=== PATIENT | male | born 1950 | race Caucasian/White ===

== ENCOUNTER → 2017-06-22 | Outpatient (CLI) | payer BC ==
[2017-06-22 12:24] LABS: CALCIUM 9.2 mg/dL (8.5-10.1); CREATININE 1.1 mg/dL (0.7-1.3); POTASSIUM 4.5 mmol/L (3.5-5.1)
== END ==
LOC: CAT 10:37
PROVIDERS: Nurse Practitioner
DX: K57.30 Diverticulosis of large intestine without perforation or abscess without bleeding (principal); N40.2 Nodular prostate without lower urinary tract symptoms

== ENCOUNTER → 2019-07-24 | Outpatient (CLI) | payer BC ==
[~2019-07-24] VITALS: Ht 175.3 cm; Wt 67.1 kg
[~2019-07-24] MED LIST: BENADRYL25 MG PO; NEURONTIN 300300 M1 PO; NEURONTIN600 MG PO; PERCOCET 5-3251 EACH PO; TRAMADOL 50 MG50 MG PO; VALTREX1000 MG PO
--- NOTE | ~2019-07-24 | HPC ---
[facility] [address] [place] [address] PAIN MANAGEMENT CONSULTATION Name: WISAM GUTIERREZ [id number] Admission: 07/24/19 Attend Phys: Olivier Pacheco MD Discharge: Date of : 48 Report #: [id number] THIS REPORT FOR: cc: Jeffry Galindo MD, Neal A. MD Brown,Olivier Salazar MD ~ CC: Olivier Galindo DATE OF SERVICE: 07/24/2019 CHIEF COMPLAINT: Shingles to the face and head. HISTORY: The patient is a 68-year-old gentleman who has been referred to the pain clinic. The patient states that he developed shingles on his face. It involved his right scalp area above his eye. He sought consultation from an eye doctor. He was told that there was no involvement of the cornea in his eye. This was in 05/17/2019. He does drive a city bus. He has been off work for some time because of this shingles problem. He is experiencing some numbness over his right eye. The blisters have dried. He notes that there is a discomfort over his right eyebrow. He has used steroid eyedrops. He did try Vicodin, but did not find that this medication provided significant improvement. He used oxycodone. This medication helped enabling him to get more sleep. He notes that there is still some discomfort. If he sameera on his right side on the pillow, this can awaken him. At this point, the burning is somewhat less. He does note some shooting and lancinating type of pain. ALLERGIES: AMOXICILLIN. CURRENT MEDICATIONS: Valtrex 1000 mg t.i.d., gabapentin 300 mg 1 capsule t.i.d., Tamiflu 75 mg 2 times daily, oxycodone 5/325 one p.o. q.4-6 hours for pain, tramadol 50 mg b.i.d. as needed for moderate pain. PAST MEDICAL HISTORY: Arthritis, joint disease, herpes zoster outbreak over the right eye and right scalp area. PAST SURGICAL HISTORY: 1. Three knee surgeries ____ cartilage on the right and left, approximately in 1998. 2. Cataract, left, approximately in 2015. 3. Left rotator cuff, approximately in 2015. 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 He has not been working at this juncture. He has been off since 05/17/2019. The patient plays in a band. [facility] [address] [place] [address] PAIN MANAGEMENT CONSULTATION Name: WISAM GUTIERREZ Cecily Room #: [facility] [id number] Admission: 07/24/19 Attend Phys: Olivier Pacheco MD Discharge: Date of : 48 Report #: [id number] REVIEW OF SYSTEMS: ____ good health lately. LABORATORY DATA: No new laboratory values are available at the time of our interview. PAIN CLINIC ASSESSMENT AND PQRS: 1. The patient has some osteoarthritic changes associated with his knees. He is not being treated for rheumatoid arthritis. 2. Height: 5 feet 9 inches, weight 148 pounds, BMI to be calculated. Pain intensity 5/10. 3. Fall history: The patient has not fallen in the last 3 months. 4. Blood thinner: The patient is not on a blood thinning medication. 5. Opioids: The patient received medication from one source, the pain clinic. 6. Opioid use: Moderate. 7. Recreational drugs: The patient denies use of recreational drugs. 8. Tobacco: The patient does not smoke. 9. Alcohol: The patient denies use of alcoholic beverages. PHYSICAL EXAMINATION: GENERAL: The patient is a well-developed, well-nourished white male. Appears his stated age. He is alert and oriented x 3. His affect is appropriate. Speech is fluent. HEENT: Normocephalic, atraumatic. Extraocular eye muscles are intact. The patient has a well-healed lesion in the right lateral portion of his temporal area and some evidence of blistering over the right eyelid area. The patient has some pain and discomfort that still remains over the right temporal area. No evidence of eye involvement is noted. He does complain of some pain and discomfort around the eye upper area as well as down in the medial canthal area. NECK: Without adenopathy or JVD. HEART: Regular rate. ABDOMEN: Nontender. LUNGS: Clear to auscultation. EXTREMITIES: Upper extremity muscle strength judged to be 5/5 for the major muscle groups in the upper extremity. Lower extremity muscle strength judged to be 5/5 for the major muscle groups in the lower extremity. IMPRESSION: 1. Postherpetic neuralgia after herpes zoster outbreak over the right eye in 05/2019. 2. Osteoarthritis, knees. RECOMMENDATION: We discussed treatment options with the patient. At this juncture, he feels that his medications are somewhat helpful. He continues to have some pain, which is lancinating and sharp. Sometimes sympathectomy in the right superior ganglion area could be helpful. Overall, the patient seems to be doing reasonably well. I would recommend that he continue with his Percocet to [facility] [address] [place] [address] PAIN MANAGEMENT CONSULTATION Name: WISAM GUTIERREZ Room #: [facility]#: [id number] Admission: 07/24/19 Attend Phys: Olivier Pacheco MD Discharge: Date of : 48 Report #: [id number] help with pain at night. We will also have the patient continue with the Neurontin. He has had 300 mg 4 times daily. At this juncture, I think he could benefit from continued use of gabapentin. We will have the patient take 600 mg 1 p.o. t.i.d. We explained to the patient that sometimes patients do not notice a significant amount of pain relief with dosing less than 1800. Sometimes it is approximately 1800 mg that people can notice a turnaround. The possibility of using Elavil/amitriptyline, could be considered. This medication sometimes can help with sharp, shooting, lancinating pain that is associated with the nerve irritation from herpes zoster outbreak. The patient will follow up in the future as needed. We would like to thank you for letting us participate in his care. We hope he continues to improve. By: [phone] Olivier Pacheco MD /nt
[2019-07-24 09:10] VITALS: BP 129/91
--- NOTE | 2019-07-24 09:25 | NUR ---
Pain Clinic Assessment: 1. History of Osteoarthritis: Not Applicable History of Rheumatoid Arthritis: Not Applicable 2. Height: 5 ft. 9 in. 175.3 cm. Weight: 148.0 lb. oz. 67.132 kg. Patient's BMI: 21.8 3. Vital Signs: BP: 129/91 Pulse: 69 Resp: 14 Temp: 02 Sat: 99 ECG Mon: 4. Pain Intensity: 5 5. Fall Risk: Dizziness: N Needs help standing or walking: N Fallen in the last 3 months: N Fall risk comments: 6. Patient on Blood Thinner: None 7. History of Hypertension: N 8. Opioid Therapy greater than 6 weeks: Y Opiate Contract Signed: 9. Risk Assessment Tool Provided: 10. Functional Assessment Tool: 11. Recreational Drug Use: Never Drug Type: Tobacco Use: Never Smoker Tobacco Type: Amount or Packs/day: How Many Years: Alcohol Use: No Frequency: Quant:
--- NOTE | 2019-07-24 09:42 | NUR ---
Pain Clinic Assessment: 1. History of Osteoarthritis: Left Lower Extremity Left Upper Extremity Right Lower Extremity Right Upper Extremity History of Rheumatoid Arthritis: Not Applicable 2. Height: 5 ft. 9 in. 175.3 cm. Weight: 148.0 lb. oz. 67.132 kg. Patient's BMI: 21.8 3. Vital Signs: BP: 129/91 Pulse: 69 Resp: 14 Temp: 02 Sat: 99 ECG Mon: 4. Pain Intensity: 5 5. Fall Risk: Dizziness: N Needs help standing or walking: N Fallen in the last 3 months: N Fall risk comments: 6. Patient on Blood Thinner: None 7. History of Hypertension: N 8. Opioid Therapy greater than 6 weeks: N Opiate Contract Signed: 9. Risk Assessment Tool Provided: HIGH 10. Functional Assessment Tool: 11. Recreational Drug Use: Past greater than 3 mos Drug Type: MARIJUANA Tobacco Use: Never Smoker Tobacco Type: Amount or Packs/day: How Many Years: Alcohol Use: Past use Frequency: Quant: LAST DRINK 2005
== END ==
LOC: PAIN 06:38
DX: B02.29 Other postherpetic nervous system involvement (principal); M17.0 Bilateral primary osteoarthritis of knee; M19.90 Unspecified osteoarthritis, unspecified site; Z79.899 Other long term (current) drug therapy; Z79.891 Long term (current) use of opiate analgesic

== ENCOUNTER → 2020-11-19 | Outpatient (CLI) | payer OTHER | LOC: CAT 10:47 | PROVIDERS: ATTEND Family Medicine | DX: Z13.6 Encounter for screening for cardiovascular disorders (principal) ==

== ENCOUNTER → 2020-12-18 | Outpatient (CLI) | payer BC ==
[2020-12-18 11:11] LABS: CREATININE 1.1 mg/dL (0.7-1.3)
== END ==
LOC: CAT 09:43
PROVIDERS: ATTEND Family Medicine
DX: I71.2 Thoracic aortic aneurysm, without rupture (principal); I70.0 Atherosclerosis of aorta; R91.1 Solitary pulmonary nodule; J98.4 Other disorders of lung

== ENCOUNTER → 2020-12-31 | Outpatient (CLI) | payer BC | LOC: SJCVCIMAG 14:19 | PROVIDERS: ATTEND Internal Medicine Cardiovascular Disease | DX: I08.2 Rheumatic disorders of both aortic and tricuspid valves (principal); I27.20 Pulmonary hypertension, unspecified; E78.5 Hyperlipidemia, unspecified; I25.10 Atherosclerotic heart disease of native coronary artery without angina pectoris; R93.1 Abnormal findings on diagnostic imaging of heart and coronary circulation ==

== ENCOUNTER → 2021-01-29 | Outpatient (CLI) | payer BC ==
[~2021-01-29] VITALS: Ht 175.3 cm; Wt 69.4 kg
[~2021-01-29] MED LIST changes: +ASA81BEC PO; +CRESTOR5 MG PO
[2021-01-29 07:28] VITALS: BP 116/76
[2021-01-29 07:33] LABS: HEMATOCRIT 45.5 % (42.0-52.0); HEMOGLOBIN 15.1 gm/dL (14.0-18.0); MCH 30.9 pg (26.0-34.0); MCHC 33.1 g/dL (28.0-37.0); MCV 93.3 fL (80.0-100.0); RBC 4.88 mil/uL (4.50-6.00); RDW 13.5 % (10.5-14.5); WBC 6.4 thou/uL (4.0-11.0)
[2021-01-29 08:03] LABS: CALCIUM 9.2 mg/dL (8.5-10.1); CREATININE 1.5 mg/dL (0.7-1.3)
--- NOTE | 2021-02-04 11:14 | CATHLAB ---
[facility] [address] [place] [address] INVASIVE PROCEDURE REPORT Name: WISAM GUTIERREZ Cecily Room #: [facility] [id number] Admission: 01/29/21 Attend Phys: Duke Patel MD, Discharge: Date of : 48 Report #: [id number] THIS REPORT FOR: cc: Jeffry Galindo MD, Neal A. MD Mancuso, Gerald M. MD [facility] ~ APPROVED REPORT Study performed: 01/29/2021 07:43:46 Patient Details The patient is a 70 year-old male Event Personnel Duke Patel Emergency Physician, Aranza Dunn RTR Scrub, Katie Chance RT(R)() Junior Tiwari Roberta Monitor, Jong Gonzalez RN employee communications intern Performed Right and Left Heart Cath w/or w/o Coronarie [id number] [facility] Ascending Aortography 96684 Initial Mod Sed Same Phys/QHP Gr5y [id number] Mod Sed Same Phys/QHP Ea [id number] Hemostasis w/ Mynx Hemostasis with Manual pressure Indication Chest pain Procedure Narrative The Right Groin^ was infiltrated with 1% Lidocaine subcutaneous anesthesia. A PINNACLE 6FR Sheath #[id number] sheath was inserted into the RFA 6F^. Coronary angiography was performed using coronary diagnostic catheters. The right coronary system was accessed and visualized with a JR4 catheter. The left coronary system was accessed and visualized with a JL4 catheter. The left ventricle was accessed and visualized with a STR PIG catheter. The patient tolerated the procedure well and there were no complications associated with the procedure. There was no hematoma. Intraoperative Conscious Sedation Sedation start time: 906 Case end Time: 1000 Fentanyl 100 mcg Versed 2 mg Fluoro Time: 8.27 minutes [facility] [address] [place] [address] INVASIVE PROCEDURE REPORT Name: WISAM GUTIERREZ Room #: [facility] [place]#: [id number] Admission: 01/29/21 Attend Phys: Duke Patel, Discharge: Date of : 48 Report #: [id number] Dose: DAP 4530.90 cGycm2 358 mGy Contrast Type and Amount: Visipaque 95 ml Hemodynamics The right atrial mean pressure is 9 mmHg. The right ventricular pressure is 34/1 mmHg. The pulmonary artery pressure is 22/8 mmHg with a mean of 15 mmHg. The mean pulmonary capillary wedge pressure is 17 mmHg. The aortic pressure is 113/61 mmHg with a mean of 80 mmHg. The left ventricular pressure is 124/8 mmHg with a mean of mmHg. The left ventricular end diastolic pressure is 21 mmHg. The cardiac output using thermo method is 3.47 L/min. The cardiac index using thermo method is 1.88 L/min/m2. Conclusion #1 Normal left ventricular size and systolic function EF 60%. #2 supravalvular aortogram reveals significant aortic dilatation/aneurysm. Trivial aortic insufficiency is noted. This appears to involve the predominant whole ascending aorta and then become smaller in the transverse aorta. #3 left main with mild disease giving rise to LAD and circumflex. #4 LAD with minimal irregularity type I it is attenuated vessel at the apex. No occlusive disease. #5 circumflex OM is nondominant with mild disease. #6 dominant right coronary artery is widely patent. #7 successful right heart catheterization with cardiac output by thermodilution. See above hemodynamics. Recommendations and plan: Continue aggressive risk factor modifications. Will be evaluated to [facility] [place] surgery for aortic root replacement. <ELECTRONICALLY SIGNED> By: Duke Patel MD, FACC 02/04/21 1114 13 13 Duke Patel MD, FACC /INF
== END | disposition home or self-care (01) ==
LOC: CATH 06:26
PROVIDERS: ATTEND Internal Medicine Cardiovascular Disease
DX: R07.9 Chest pain, unspecified (principal); I25.10 Atherosclerotic heart disease of native coronary artery without angina pectoris; I71.9 Aortic aneurysm of unspecified site, without rupture; I35.1 Nonrheumatic aortic (valve) insufficiency; I10 Essential (primary) hypertension; E78.00 Pure hypercholesterolemia, unspecified; Z98.890 Other specified postprocedural states; Z79.899 Other long term (current) drug therapy; Z87.891 Personal history of nicotine dependence; Z88.8 Allergy status to other drugs, medicaments and biological substances

== ENCOUNTER → 2021-03-24 | Outpatient (CLI) | payer BC | LOC: SJCVCIMAG 09:39 | PROVIDERS: ATTEND Internal Medicine Cardiovascular Disease | DX: I08.1 Rheumatic disorders of both mitral and tricuspid valves (principal); J20.9 Acute bronchitis, unspecified; I48.91 Unspecified atrial fibrillation; I71.2 Thoracic aortic aneurysm, without rupture; M89.49 Other hypertrophic osteoarthropathy, multiple sites; I31.3 Pericardial effusion (noninflammatory); Z68.22 Body mass index [BMI] 22.0-22.9, adult; Z95.2 Presence of prosthetic heart valve; Z79.899 Other long term (current) drug therapy ==

== ENCOUNTER → 2021-03-26 | Outpatient (CLI) | payer BC | LOC: SJCVCIMAG 11:57 | PROVIDERS: ATTEND Internal Medicine Cardiovascular Disease | DX: I51.7 Cardiomegaly (principal); R06.00 Dyspnea, unspecified; I31.3 Pericardial effusion (noninflammatory) ==

== ENCOUNTER → 2021-06-02 | Outpatient (CLI) | payer BC | LOC: SJCVCIMAG 09:09 | PROVIDERS: ATTEND Internal Medicine Cardiovascular Disease | DX: I08.1 Rheumatic disorders of both mitral and tricuspid valves (principal); I31.3 Pericardial effusion (noninflammatory); Z95.2 Presence of prosthetic heart valve ==